=== PATIENT | female | born 1980 | race Caucasian/White ===

== ENCOUNTER 2021-10-13 15:06 | Emergency (ER) | payer OTHER, SELFPAY ==
[2021-10-13 15:10] VITALS: BP 127/71; PULSE 105; RESP 20; TEMP 37.1; O2SAT 100
[2021-10-13 15:31] LABS: Basophils Percent Auto 0.1 % (0.2-1.2); Eosinophils Percent Auto 0.1 % (0-4.4); Hematocrit 39.1 % (37.0-47.0); Hemoglobin 13.3 g/dL (12.0-15.0); Immature Granulocyte Absolute 0.03 K/mm3 (0.00-0.031); Immature Granulocyte Percent A 0.3 % (0-0.5); Lymphocytes Absolute Auto 0.21 K/mm3 (0.9-3.2); Lymphocytes Percent Auto 2.3 % (18.3-44.2); Mean Corpuscular Hemoglobin 29.9 pg (26-34); Mean Corpuscular Volume 87.9 fl (80-100); Mean Platelet Volume 9.2 fl (7.4-10.4); Monocytes Absolute Auto 0.3 K/mm3 (0.1-0.6); Monocytes Percent Auto 2.9 % (2.6-8.5); Neutrophils Absolute Auto 8.6 K/mm3 (1.3-6.7); Neutrophils Percent Auto 94.3 % (45.5-73.1); Platelet Count Result 216 k/mm3 (150-375); Red Blood Count 4.45 M/mm3 (4.2-5.4); Red Cell Distribution Width 13.5 % (11.5-14.5); White Blood Count 9.1 K/mm3 (4.5-10.0)
[2021-10-13 15:43] LABS: Alanine Aminotransferase 20 U/L (6-35); Albumin Level 4.6 g/dL (3.5-5.1); Alkaline Phosphatase 79 U/L (38-126); Anion Gap 10 mmol/L (8-16); Aspartate Amino Transferase 23 U/L (14-36); Bilirubin,Total 0.7 mg/dL (0.2-1.3); Blood Urea Nitrogen 12 mg/dL (7-17); Calcium 8.8 mg/dL (8.4-10.2); Carbon Dioxide 18 mmol/L (22-30); Chloride 104 mmol/L (98-107); Estimated CRCL calculation 124 ml/min; Estimated Glomerular Filt Rate > 60; Glucose 131 mg/dL (65-110); Lipase 84 U/L (23-300); Potassium 4.1 mmol/L (3.4-5.0); Sodium 132 mmol/L (137-145)
[2021-10-13 16:03] LABS: Appearance Urine Slightly Cloudy (Clear); Bilirubin Urine Negative (Negative); Blood Urine Negative (Negative); Color Urine Yellow (Yellow); Glucose Urine UA Negative (Negative); Ketones Urine 2+ mg/dL (Negative); Leukocyte Esterase Ur Negative LEU/UL (Negative); Nitrate Urine Negative (Negative); Protein Urine Negative (Negative); Urobilinogen Urine 0.2 mg/dL (<2.0); pH Urine 6.5 (5.0-9.0)
[2021-10-13 16:09] LABS: Bacteria Urine Trace /hpf; Mucus Urine Few /lpf; Squamous Epithelial Cell Urine Many /hpf (Few)
[2021-10-13 16:12] LABS: Add Urine Microscopic? YES
--- NOTE | 2021-10-13 16:31 | ED.NAVMDI ---
HPI - Nausea/Vomiting/Diarrhea General Chief complaint: Nausea/Vomiting/Diarrhea Stated complaint: cough, diarrhea, body aches Time Seen by Provider: 10/13/21 15:56 History of Present Illness HPI Narrative: 41-year-old female presents the emergency room for evaluation of nonbilious nonbloody vomiting and diarrhea. Patient states vomiting and diarrhea began at 530 this morning. She says that she was camping with multiple other people and 7 of 11 people have all been experiencing vomiting and diarrhea. Denies abdominal pain at this time Related Data Allergies Allergy/AdvReac Type Severity Reaction Status Date / Time No Known Allergies Allergy Verified 10/13/21 17:07 Review of Systems Review of Systems: CONSTITUTIONAL: Denies fever, chills, or sweats. EYES: Denies visual changes, redness, or discharge. ENT: Denies rhinorrhea, congestion, sore throat, or otalgia. CARDIOVASCULAR: Denies chest pain, palpitations, or edema. RESPIRATORY: Denies cough or dyspnea. GASTROINTESTINAL: Reports nausea, vomiting and diarrhea GENITOURINARY: Denies dysuria or hematuria. SKIN: Denies rash or itching. MUSCULOSKELETAL: Denies back pain, joint pain, or myalgia. NEUROLOGIC: Denies headache, numbness, dizziness, or weakness. PSYCHIATRIC: Denies anxiety or depression. Exam Narrative: GENERAL: Well-appearing, well-nourished, no physical limitations, and in no acute distress. HEAD: Normocephalic, atraumatic. EYES: Conjunctivae normal, PERRLA and EOMI. ENT: External nose normal, Nares clear, no rhinorrhea or epistaxis. Mucous membranes dry. Oropharynx without tonsillar hypertrophy exudate or other lesions. External ears normal, bilateral TMs normal bilaterally CHEST: Clear to auscultation. No respiratory distress. No wheezes rales or rhonchi. No tenderness. HEART: Tachycardia and regular rhythm. No murmur heard. Normal peripheral pulses. ABDOMEN: Soft, nontender, nondistended, normal active bowel sounds. : Normal external male/female exam. BACK: No CVA tenderness; No cervical/thoracic/lumbar tenderness, step-offs, bony abnormality; FROM EXTREMITIES: Normal range of motion. No edema. No clubbing or cyanosis SKIN: Warm, dry, no rash. No noted wounds NEURO: No focal deficits. Alert and oriented x3. MAEW. CN's II-XI intact bilaterally, normal gait PSYCH: Cooperative. Normal mood and affect. Course Vital Signs Vital signs: Vital Signs Temperature 37.1 C 10/13/21 15:10 Pulse Rate 105 H 10/13/21 15:10 Respiratory Rate 10/13/21 15:10 Blood Pressure 127/71 10/13/21 15:10 Pulse Oximetry 100 10/13/21 15:10 Oxygen Delivery Room Air 10/13/21 15:10 Temperature 37.1 C 10/13/21 15:10 Pulse Rate 105 H 10/13/21 15:10 Respiratory Rate 20 10/13/21 15:10 Blood Pressure 127/71 10/13/21 15:10 Pulse Oximetry 100 10/13/21 15:10 Oxygen Delivery Room Air 10/13/21 15:10 MDM - Nausea/Vomiting/Diarrhea Lab Data Result diagrams: 10/13/21 15:19 10/13/21 15:19 Labs: Lab Results 10/13/21 10/13/21 10/13/21 Range/Units 15:19 15:19 15:48 WBC 9.1 (4.5-10.0) K/mm3 RBC 4.45 (4.2-5.4) M/mm3 Hgb 13.3 (12.0-15.0) g/dL Hct 39.1 (37.0-47.0) % MCV 87.9 (80-100) fl MCH 29.9 (26-34) pg MCHC 34.0 (32-36) g/dl RDW 13.5 (11.5-14.5) % Plt Count 216 (150-375) k/mm3 MPV 9.2 (7.4-10.4) fl Immature Gran % (Auto) 0.3 (0-0.5) % Neut % (Auto) 94.3 H (45.5-73.1) % Lymph % (Auto) 2.3 L (18.3-44.2) % Garrett % (Auto) 2.9 (2.6-8.5) % Eos % (Auto) 0.1 (0-4.4) % Baso % (Auto) 0.1 L (0.2-1.2) % Lymph # (Auto) 0.21 L (0.9-3.2) K/mm3 Garrett # (Auto) 0.3 (0.1-0.6) K/mm3 Eos # (Auto) 0.0 (0-0.3) K/mm3 Baso # (Auto) 0.0 (0.0-0.1) K/mm3 Abs Immat Gran (auto) 0.03 (0.00-0.031) K/mm3 Absolute Neuts (auto) 8.6 H (1.3-6.7) K/mm3 Absolute Nucleated RBC 0.0 (0.0-0.012) K/mm3 Nucleated RBC % 0.0 (0.0-0.2) % S
[2021-10-13] MEDS: SODIUM CHLORIDE 0.9% IV 1,000 ML 999 ML IV CONT (16:48)
[2021-10-13 16:49] LABS: SARS-CoV-2 RNA PCR Negative
[2021-10-13] MEDS: ONDANSETRON INJ 4 MG/2 ML VIAL IV PUSH (16:49)
== END 2021-10-13 17:56 | disposition home or self-care (01) ==
PROVIDERS: Emergency Medicine; Emergency Provider Nurse Practitioner Family
DX: K52.9 Noninfective gastroenteritis and colitis, unspecified (principal); Z20.822 Contact with and (suspected) exposure to COVID-19
CPT/HCPCS: 36415; 80053; 81001; 81025; 83690; 85025; 87086; 87088; 96361; 96374; 99284; C9803; J2405; J7030; U0003; U0005

== ENCOUNTER 2023-06-22 08:40 | Emergency (ER) | payer OTHER, SELFPAY ==
--- NOTE | ~2023-06-22 | CT_ITS ---
EXAMINATION: CT abdomen pelvis wo con DATE: 06/22/2023 09:39 INDICATION: Left flank pain. TECHNIQUE: Computed tomography (CT) of the abdomen and pelvis was performed without intravenous contr ast. Automated exposure control and iterative reconstruction technique were employed. The dose-length product was 1298.12 mGy-cm. COMPARISON: None. FINDINGS: The visualized portions of the lung bases demonstrate mild atelectasis. No pleural effusion . The heart size is normal. No pericardial effusion. The liver, gallbladder, spleen, pancreas, adrena l glands, and right kidney are normal. There is mild left hydronephrosis and hydroureter. There is a 3 mm stone at left ureterovesicular junction. There is an intrauterine device in expected position. T he appendix is normal. There are no dilated loops of bowel. There are no pathologically enlarged lymp h nodes. There is physiologic fluid in the pelvis. There is mild thoracic and lumbar spondylosis. The re is mild chronic anterior wedging of multiple vertebral bodies. IMPRESSION: 1. 3 mm stone at left ureterovesicular junction with mild left hydronephrosis and hydroureter. Reviewed, dictated and finalized at location A. IMPRESSION: 1. 3 mm stone at left ureterovesicular junction with mild left hydronephrosis a nd hydroureter.
[2023-06-22 08:50] VITALS: BP 146/91; PULSE 74; RESP 17; TEMP 36.7; O2SAT 100
[2023-06-22] MEDS: ONDANSETRON INJ 4 MG/2 ML VIAL IV PUSH (09:15)
[2023-06-22] MEDS: SODIUM CHLORIDE 0.9% IV 1,000 ML 999 ML IV CONT (09:15)
[2023-06-22] MEDS: KETOROLAC 30 MG/ML VIAL (*BKC) IV PUSH (09:15)
[2023-06-22 09:16] LABS: Basophils Percent Auto 0.4 % (0.2-1.2); Eosinophils Percent Auto 0.7 % (0-4.4); Hematocrit 39.9 % (37.0-47.0); Hemoglobin 13.2 g/dL (12.0-15.0); Immature Granulocyte Absolute 0.01 K/mm3 (0.00-0.031); Immature Granulocyte Percent A 0.2 % (0-0.5); Lymphocytes Absolute Auto 0.77 K/mm3 (0.9-3.2); Lymphocytes Percent Auto 13.8 % (18.3-44.2); Mean Corpuscular HGB Conc 33.1 g/dl (32-36); Mean Corpuscular Hemoglobin 29.7 pg (26-34); Mean Corpuscular Volume 89.9 fl (80-100); Mean Platelet Volume 9.1 fl (7.4-10.4); Monocytes Absolute Auto 0.3 K/mm3 (0.1-0.6); Monocytes Percent Auto 5.4 % (2.6-8.5); Neutrophils Absolute Auto 4.4 K/mm3 (1.3-6.7); Neutrophils Percent Auto 79.5 % (45.5-73.1); Platelet Count Result 228 k/mm3 (150-375); Red Blood Count 4.44 M/mm3 (4.2-5.4); Red Cell Distribution Width 13.1 % (11.5-14.5); White Blood Count 5.6 K/mm3 (4.5-10.0)
[2023-06-22 09:28] LABS: Alanine Aminotransferase 23 U/L (6-35); Albumin Level 4.6 g/dL (3.5-5.1); Alkaline Phosphatase 74 U/L (38-126); Anion Gap 9 mmol/L (8-16); Aspartate Amino Transferase 24 U/L (14-36); Bilirubin,Total 0.6 mg/dL (0.2-1.3); Blood Urea Nitrogen 10 mg/dL (7-17); Calcium 9.6 mg/dL (8.4-10.2); Carbon Dioxide 20 mmol/L (22-30); Chloride 108 mmol/L (98-107); Estimated CRCL calculation 144 ml/min; Estimated Glomerular Filt Rate > 60; Glucose 124 mg/dL (65-110); Sodium 137 mmol/L (137-145)
[2023-06-22 09:50] LABS: Appearance Urine Cloudy (Clear); Bacteria Urine 1+ /hpf; Bilirubin Urine Negative (Negative); Blood Urine 3+ (Negative); Color Urine Yellow (Yellow); Glucose Urine UA Negative (Negative); Ketones Urine 2+ mg/dL (Negative); Leukocyte Esterase Ur Trace LEU/UL (Negative); Nitrate Urine Negative (Negative); Non Pathogenic Casts 0-2; Protein Urine 1+ mg/dL (Negative); RBC Urine >100 /hpf (0-2); Specific Grav Ur 1.019 (1.001-1.035); Squamous Epithelial Cell Urine Moderate /hpf (Few); Urobilinogen Urine 0.2 mg/dL (<2.0)
[2023-06-22 09:54] LABS: Add Urine Microscopic? YES
--- NOTE | 2023-06-22 10:33 | ED.GENADULT ---
HPI - General Adult General Chief complaint: Urogenital-Female Stated complaint: left flank pain Time Seen by Provider: 06/22/23 08:46 History of Present Illness HPI narrative: patient is a 43-year-old female who presents ER with sudden onset left-sided flank pain. Radiating into the abdomen. Associated nausea or vomiting. Patient has the urge to urinate. No history of kidney stones. Denies any trauma. No dysuria. Related Data Allergies Allergy/AdvReac Type Severity Reaction Status Date / Time No Known Allergies Allergy Verified 06/22/23 08:43 Review of Systems Review of Systems: All systems reviewed & are unremarkable except as noted in HPI and below Constitutional: Constitutional: Reports no additional constitutional complaints ENT: Reports system reviewed and no additional complaints, except as documented Cardiovascular: Cardiovascular: Reports no additional cardiovascular complaints Respiratory: Respiratory: Reports no additional respiratory complaints Gastrointestinal: Gastrointestinal: Reports abdominal pain, Reports nausea and Reports vomiting Genitourinary: Genitourinary: Reports nocturia, Denies dysuria and Reports flank pain PMFSH Past Medical History Medical History (Updated 06/22/23 @ 18:09 by Hugo Jiang MD) Healthy female adult Surgical History Surgical History (Updated 06/22/23 @ 18:10 by Hugo Jiang MD) No pertinent past surgical history Exam Narrative: GENERAL: Uncomfortable-appearing, well-nourished, and in no acute distress. HEAD: Normocephalic, atraumatic. EYES: PERRL and EOMI. ENT: Mucous membranes moist. NECK: Supple. CHEST: Clear to auscultation. No respiratory distress. HEART: Regular rate and rhythm. Normal peripheral pulses. ABDOMEN: Soft, mildly tender left lower quadrant, nondistended. EXTREMITIES: Normal range of motion. No edema. SKIN: Warm, dry, no rash. NEURO: Alert and oriented x3. PSYCH: Normal mood and affect. Course Course Emergency Course: patient markedly improved with Toradol. Discussed treatment plan for 3 mm stone. Patient hydrated here. Will place on antibiotic the urine is unlikely to be infected given there is 1+ bacteria with moderate squamous epithelial cells and few white blood cells. Vital Signs Vital signs: Vital Signs Temperature 98.1 F 06/22/23 08:50 Pulse Rate 74 06/22/23 08:50 Respiratory Rate 17 06/22/23 08:50 Blood Pressure 146/91 H 06/22/23 08:50 Pulse Oximetry 100 06/22/23 08:50 Temperature 97.8 F 06/22/23 11:08 Pulse Rate 88 06/22/23 11:08 Respiratory Rate 20 06/22/23 11:08 Blood Pressure 140/84 06/22/23 11:08 Pulse Oximetry 100 06/22/23 11:08 Medical Decision Making Vital Signs Vital Signs: Vital Signs Temperature 98.1 F 06/22/23 08:50 Pulse Rate 74 06/22/23 08:50 Respiratory Rate 17 06/22/23 08:50 Blood Pressure 146/91 H 06/22/23 08:50 Pulse Oximetry 100 06/22/23 08:50 Temperature 97.8 F 06/22/23 11:08 Pulse Rate 88 06/22/23 11:08 Respiratory Rate 20 06/22/23 11:08 Blood Pressure 140/84 06/22/23 11:08 Pulse Oximetry 100 06/22/23 11:08 Lab Data 06/22/23 09:07 06/22/23 09:07 Labs: Lab Results 06/22/23 06/22/23 Range/Units 09:07 09:26 WBC 5.6 (4.5-10.0) K/mm3 RBC 4.44 (4.2-5.4) M/mm3 Hgb 13.2 (12.0-15.0) g/dL Hct 39.9 (37.0-47.0) % MCV 89.9 (80-100) fl MCH 29.7 (26-34) pg MCHC 33.1 (32-36) g/dl RDW 13.1 (11.5-14.5) % Plt Count 228 (150-375) k/mm3 MPV 9.1 (7.4-10.4) fl Immature Gran % (Auto) 0.2 (0-0.5) % Neut % (Auto) 79.5 H (45.5-73.1) % Lymph % (Auto) 13.8 L (18.3-44.2) % [place] % (Auto) 5.4 (2.6-8.5) % Eos % (Auto) 0.7 (0-4.4) % Baso % (Auto) 0.4 (0.2-1.2) % Lymph # (Auto) 0.77 L (0.9-3.2) K/mm3 [place] # (Auto) 0.3 (0.1-0.6) K/mm3 Eos # (Auto) 0.0 (0-0.3) K/mm3 Baso # (Auto) 0.0 (0.0-0.
[2023-06-22 11:08] VITALS: BP 140/84; PULSE 88; RESP 20; TEMP 36.6; O2SAT 100
== END 2023-06-22 11:11 | disposition home or self-care (01) ==
PROVIDERS: Emergency Provider Emergency Medicine
DX: N20.1 Calculus of ureter (principal)
CPT/HCPCS: 36415; 74176; 80053; 81025; 85025; 87086; 87088; 96361; 96374; 96375; 99284; J1885; J2405; J7030

== ENCOUNTER 2023-10-09 11:04 | Emergency (ER) | payer OTHER, SELFPAY ==
--- NOTE | ~2023-10-09 | XR_ITS ---
EXAMINATION: XR chest 1V portable DATE: 10/09/2023 11:32 INDICATION: Near syncope TECHNIQUE: frontal view of the chest was obtained. COMPARISON: None FINDINGS: The lungs are clear with no focal airspace opacities, pulmonary edema, pleural effusion or pneumothor ax. The cardiomediastinal silhouette is normal. IMPRESSION: 1. No acute cardiopulmonary disease. Reviewed, dictated and finalized at location A.
--- NOTE | ~2023-10-09 | US_ITS ---
EXAMINATION: US venous doppler [facility] DATE: 10/09/2023 11:51 INDICATION: Deep venous thrombosis with left lower limb swelling TECHNIQUE: Grayscale ultrasound images without and with compression and Doppler ultrasound images of the left lower extremity veins were obtained. COMPARISON: None. FINDINGS: The visualized portions of left common femoral vein, profunda (deep) femoral vein, femoral vein, popl iteal vein, peroneal veins, posterior tibial veins, gastrocnemius vein and greater saphenous vein out flow are patent. IMPRESSION: 1. No deep venous thrombosis in the left lower limb. Reviewed, dictated and finalized at location A.
[2023-10-09 11:04] VITALS: BP 127/82; PULSE 79; RESP 16; TEMP 36.3; O2SAT 100
--- NOTE | 2023-10-09 11:14 | ECG_ITS ---
Test Date: 2023-10-09 11:29:04 Measurements Intervals [place] Rate: 73 P: -1 UT: 175 QRS: 35 QRSD: 92 T: 15 QT: 350 QTc: 387 Interpretive Statements SINUS RHYTHM No previous ECG available for comparison Electronically Signed On 10-09-2023 16:18:23 CDT by [place] M.D.
[2023-10-09 11:34] LABS: Basophils Percent Auto 0.4 % (0.2-1.2); Eosinophils Absolute Auto 0.1 K/mm3 (0-0.3); Eosinophils Percent Auto 0.9 % (0-4.4); Hematocrit 39.6 % (37.0-47.0); Hemoglobin 12.9 g/dL (12.0-15.0); Immature Granulocyte Absolute 0.02 K/mm3 (0.00-0.031); Immature Granulocyte Percent A 0.4 % (0-0.5); Lymphocytes Absolute Auto 1.15 K/mm3 (0.9-3.2); Lymphocytes Percent Auto 20.3 % (18.3-44.2); Mean Corpuscular HGB Conc 32.6 g/dl (32-36); Mean Corpuscular Volume 92.1 fl (80-100); Mean Platelet Volume 9.1 fl (7.4-10.4); Monocytes Absolute Auto 0.4 K/mm3 (0.1-0.6); Monocytes Percent Auto 6.9 % (2.6-8.5); Neutrophils Percent Auto 71.1 % (45.5-73.1); Platelet Count Result 221 k/mm3 (150-375); Red Cell Distribution Width 13.6 % (11.5-14.5); White Blood Count 5.7 K/mm3 (4.5-10.0)
[2023-10-09 11:44] LABS: Alanine Aminotransferase 16 U/L (6-35); Albumin Level 4.6 g/dL (3.5-5.1); Alkaline Phosphatase 71 U/L (38-126); Anion Gap 8 mmol/L (4-12); Aspartate Amino Transferase 21 U/L (14-36); Bilirubin,Total 0.6 mg/dL (0.2-1.3); Blood Urea Nitrogen 10 mg/dL (7-17); Calcium 9.3 mg/dL (8.4-10.2); Carbon Dioxide 26 mmol/L (22-30); Chloride 106 mmol/L (98-107); Estimated CRCL calculation 96 ml/min; Estimated Glomerular Filt Rate > 60; Glucose 85 mg/dL (65-110); Magnesium 2.2 mg/dL (1.6-2.3); Potassium 4.1 mmol/L (3.4-5.0); Sodium 140 mmol/L (137-145)
[2023-10-09 11:45] VITALS: PULSE 82
--- NOTE | 2023-10-09 12:11 | ED.DIZZY ---
HPI - Dizziness General Chief Complaint: Dizziness Stated Complaint: dizzy spells Time Seen by Provider: 10/09/23 11:14 History of Present Illness HPI Narrative: Patient is a 43-year-old female who presents to the emergency department this morning complaining of lightheadedness. Patient states that this feeling only happens when she squats for too long and then gets up or crosses her legs for an extended period of time. Patient states that she has had a left lower extremity DVT in the past due to a history of factor 5 laden and was concerned that she now developed another DVT. Patient admits that the dizziness feels more of a lightheaded near syncopal episode. She also admits that this is only precipitated by the squatting and leg crossing for extended periods. She denies any chest pain or shortness of breath at this time, and denies any fevers or chills at. No additional symptoms or concerns at this time. Related Data Allergies Allergy/AdvReac Type Severity Reaction Status Date / Time No Known Allergies Allergy Verified 10/09/23 12:02 Review of Systems Review of Systems: All systems are reviewed and are negative unless stated otherwise in the HPI. [facility] Past Medical History Medical History Healthy female adult Surgical History Surgical History No pertinent past surgical history Exam Narrative: General: Alert, awake, afebrile, in no acute distress. HEENT: PERRL, no rhinorrhea, no post nasal drip, oropharynx clear. Cardiovascular: Regular rate and rhythm, no murmurs, rubs or gallops, no peripheral edema. Respiratory: Clear to auscultation bilaterally, no tachypnea, no wheezing, no rhonchi, no rubs, no respiratory distress. Abdomen: Soft, nontender, nondistended, no rebound, no guarding, no peritoneal signs. Musculoskeletal: No joint swelling or deformity, normal muscle tone, intact and equal distal DP pulses bilaterally, brisk 3+. Skin: No rashes or petechia, no signs of infection. Neurological: Alert and oriented to person, place, and time. Follows all commands. No focal deficits, speech is clear and fluent. Course Vital Signs Vital signs: Vital Signs Temperature 97.3 F L 10/09/23 11:04 Pulse Rate 79 10/09/23 11:04 Respiratory Rate 16 10/09/23 11:04 Blood Pressure 127/82 10/09/23 11:04 Pulse Oximetry 100 10/09/23 11:04 Temperature 97.3 F L 10/09/23 11:04 Pulse Rate 82 10/09/23 11:45 Respiratory Rate 16 10/09/23 11:04 Blood Pressure 127/82 10/09/23 11:04 Pulse Oximetry 100 10/09/23 11:04 MDM - Dizziness MDM Narrative Medical decision making narrative: The patient was evaluated by myself in the emergency department. History is obtained from patient who is an independent historian and physical exam was performed. External medical records were reviewed at this time. IV was established and pertinent tests were ordered. EKG was obtained which revealed sinus rhythm rate of 73 beats per minute. No ST changes, T wave inversions or evidence of acute ischemia. EKG was independently interpreted by me and is currently pending official cardiology read. Laboratory results obtained revealing no acute process. Imaging studies obtained included CXR which was independently interpreted by me revealing no acute process, which is pending final radiology interpretation. Differential diagnosis considerations include DVT, dehydration, and acute viral syndrome. Comorbidities impacting this visit include history of factor 5 Leiden mutation. I have evaluated and discussed social determinants of health with the patient that could potentially impact subsequent diagnosis and treatment plans. On repeat assessment of the patient, reevaluation revealed that the patient is doing well and is in no acute distress. Patient symptoms have remained stable since she arrived to o
[2023-10-09 12:26] LABS: Appearance Urine Cloudy (Clear); Bacteria Urine 2+ /hpf; Bilirubin Urine Negative (Negative); Blood Urine Negative (Negative); Color Urine Dark Yellow (Yellow); Glucose Urine UA Negative (Negative); Ketones Urine Trace mg/dL (Negative); Leukocyte Esterase Ur Negative LEU/UL (Negative); Need Manual Microscopic Reviewed; Nitrate Urine Negative (Negative); Protein Urine Negative (Negative); Specific Grav Ur 1.018 (1.001-1.035); Squamous Epithelial Cell Urine Moderate /hpf (Few); pH Urine 5.5 (5.0-9.0)
[2023-10-09 12:28] LABS: Add Urine Microscopic? YES
[2023-10-09 12:31] VITALS: BP 118/72; PULSE 83; RESP 18; O2SAT 99
== END 2023-10-09 12:33 | disposition home or self-care (01) ==
PROVIDERS: Emergency Provider Emergency Medicine
DX: R42 Dizziness and giddiness (principal); D68.51 Activated protein C resistance; Z86.718 Personal history of other venous thrombosis and embolism; Z79.899 Other long term (current) drug therapy
CPT/HCPCS: 36415; 71045; 80053; 81001; 83735; 85025; 87086; 93005; 93971; 99284

== ENCOUNTER 2024-03-19 13:16 | Emergency (ER) | payer OTHER, SELFPAY ==
[2024-03-19 13:19] VITALS: BP 132/69; PULSE 95; RESP 18; TEMP 36.6; O2SAT 99
--- NOTE | 2024-03-19 15:39 | PC.NURSE ---
Pt left without notifying esthetic dermatologist and was not seen exiting the ED. Name called numerous times w no answer.
== END 2024-03-19 16:15 | disposition left against medical advice (07) ==
DX: R10.32 Left lower quadrant pain (principal)
CPT/HCPCS: 99199